=== PATIENT | male | born 1975 | race Hispanic/Latino ===

== ENCOUNTER 2019-10-10 21:27 | Inpatient (IN) | payer OTHER, SELFPAY ==
[~2019-10-10] VITALS: Ht 165.1 cm; Wt 102.1 kg
[2019-10-10] MEDS ORDERED: TETANUS/DIPHTHERIA TOXOID [ADULT] 0.5 ML VIAL IM ONE (22:03)
[2019-10-10] MEDS ORDERED: CEFAZOLIN SODIUM 1 GM VIAL ONE (22:03)
[2019-10-10] MEDS ORDERED: SODIUM CHLORIDE 0.9% 50 ML IV ONE (22:04)
[2019-10-10] MEDS: LACTATED RINGERS 1000ML 1,000 ML IV SCH (23:13)
[2019-10-10] MEDS ORDERED: ONDANSETRON HCL 4 MG/2 ML VIAL IV PRN (23:15)
[2019-10-10] MEDS ORDERED: DiphenhydrAMINE HCL 50 MG/ML VIAL IV PRN (23:15)
[2019-10-10] MEDS ORDERED: MORPHINE SULFATE 4 MG/1ML SYG IV PRN (23:15)
[2019-10-10] MEDS ORDERED: ACETAMINOPHEN 325 MG TAB PO PRN ×2 (23:15)
[2019-10-10] MEDS ORDERED: MAG HYDROX/AL HYDROX/SIMETH ES 30 ML SUSP UDCUP PO PRN (23:15)
[2019-10-10] MEDS ORDERED: ZOLPIDEM TARTRATE 5 MG TAB PO PRN (23:15)
[2019-10-10] MEDS ORDERED: MORPHINE SULFATE 2 MG/ML 1ML SYG IV PRN (23:15)
[2019-10-11] VITALS (22 sets, daily range): BP systolic 111–141; BP diastolic 58–90
[2019-10-11] MEDS ORDERED: LACTATED RINGERS 1000ML 1,000 ML IV ONE (00:14)
[2019-10-11 00:47] LABS: INR 0.93 (0.85-1.15); PARTIAL THROMBOPLASTIN TIME 24.7 SEC (26.3-35.5); PROTHROMBIN TIME 10.1 SEC (9.6-11.6)
[2019-10-11 00:50] LABS: ALBUMIN 3.4 g/dL (3.5-5.0); BILIRUBIN,TOTAL 0.3 mg/dL (0.2-1.0); CREATININE 0.8 mg/dL (0.5-1.5); POTASSIUM 3.8 mmol/L (3.5-5.1); TOTAL PROTEIN, SERUM 6.4 g/dL (6.0-8.3)
[2019-10-11 00:52] LABS: BASOPHILS % (AUTO) 0.7 % (0.0-5.0); EOSINOPHILS % (AUTO) 3.5 % (0.0-8.0); HEMATOCRIT 40.1 % (42-54); LYMPHOCYTES % (AUTO) 26.9 % (21.0-51.0); MEAN CORPUSCULAR HEMOGLOBIN 30.2 pg (27.0-33.0); MEAN CORPUSCULAR HGB CONC 35.4 g/dL (32.0-36.0); MEAN CORPUSCULAR VOLUME 85.3 fL (79-99); MONOCYTES % (AUTO) 7.6 % (3.0-13.0); NEUTROPHILS % (AUTO) 60.5 % (40.0-77.0); PLATELET COUNT (AUTO) 164 K/uL (130-400); RED CELL DISTRIBUTION WIDTH 12.3 % (11.0-15.5); WHITE BLOOD COUNT (AUTO) 7.6 K/uL (4.8-10.8)
[2019-10-11] MEDS ORDERED: HYDROCODONE/ACETAMINOPHEN 10/325 MG TAB ONE (02:35)
[2019-10-11] MEDS ORDERED: LIDOCAINE PF 2% 5ML ABBOJECT ONE ×2 (12:28→13:36)
[2019-10-11] MEDS ORDERED: PROPOFOL 10 MG/ML 20ML VIAL IV ONE (12:28)
[2019-10-11] MEDS ORDERED: SUCCINYLCHOLINE CHLORIDE 20 MG/ML 10 ML VIAL ONE (12:28)
[2019-10-11] MEDS ORDERED: FENTANYL CITRATE PF 50 MCG/1 ML 2ML VIAL ONE (12:29)
[2019-10-11] MEDS ORDERED: ROCURONIUM 10MG/1ML SYR 10 MG/ML ML ONE (12:29)
[2019-10-11] MEDS ORDERED: ROPIVACAINE 0.5% 5MG/ML 30ML IJ ONE (12:32)
[2019-10-11] MEDS ORDERED: CEFAZOLIN SODIUM 1 GM VIAL ONE ×2 (12:43→12:47)
[2019-10-11] MEDS ORDERED: NEOSTIGMINE 5MG/5ML SYR IV ONE (13:36)
[2019-10-11] MEDS ORDERED: SODIUM CHLORIDE 0.9% 10 ML VIAL ONE (13:36)
[2019-10-11] MEDS ORDERED: GLYCOPYRROLATE 1 MG/5 ML SYRINGE ONE (13:36)
[2019-10-11] MEDS ORDERED: KETOROLAC TROMETHAMINE 30MG/ML ONE (13:38)
--- NOTE | 2019-10-11 15:15 | NUR ---
PROCEDURE REPORT RECEIVED FROM BENITO FRANKEL RN (PACU). PATIENT S/P LEFT ACHILLES TENDON OPEN REPAIR LACERATION. DRESSING WITH SPLINT DRY AND INTACT. PATIENT STATES HAS NUMBNESS FROM MID THIGH TO TOES, UNABLE TO WIGGLE TOES AT THIS TIME. PATIENT DENIES ANY PAIN AT THIS TIME.
--- NOTE | 2019-10-11 17:32 | NUR ---
INITIAL SW spoke to patient's sister, Mendy Melara, . Patient lives with a sister in [place]. He is here visiting mother in [place]. Patient has no home services or DME. He is presently unemployed due to COVID 19. Patient is able to complete ADL's independently and drives. He has no local PCP. Pharmacy that patient will use will be [facility] located in [place]. DCP is home. Addendum: 10/11/19 at 1735 by BENITO BEASLEY Amended: Links added. Addendum: 10/11/19 at 1820 by BENITO DIAZ Patient has no insurance or benefits. He is a [place] citizen and has worked in the [place]. Patient's sister educated on [employer] $4 medication program and [facility] $5 medication program. Patient is being assisted by [employer] for financial matters.
[2019-10-11] MEDS: LACTATED RINGERS 1000ML 1,000 ML IV SCH (19:13)
--- NOTE | 2019-10-11 21:05 | NUR ---
spoke with patient and he claims he doesn't know how to use crutches and that he will like to learn with physical therapy.
[2019-10-12 00:17] VITALS: BP 106/69
[2019-10-12] MEDS ORDERED: SULF1TAB42 PO (01:07)
[2019-10-12] MEDS ORDERED: ACET1TAB25 PO (01:08)
--- NOTE | 2019-10-12 03:10 | NUR ---
patient is beginning to feel sensation to his left toes and has mild pain of a 3. acetaminophen given for the pain.
[2019-10-12 04:00] VITALS: BP 121/71
--- NOTE | 2019-10-12 04:00 | NUR ---
PLACED COLD PACKS UNDER PATIENT'S ARMPITS AND ON HIS ABDOMEN WELL ICE PACKS ON HIS HEAD TO LOWER HIS FEVER OF 99.7. WILL CONTINUE TO MONITOR HIS TEMPERATURE
[2019-10-12] MEDS: LACTATED RINGERS 1000ML 1,000 ML IV SCH ×4 (04:02→20:07)
--- NOTE | 2019-10-12 05:04 | NUR ---
PAGED DOCTOR PARKS FOR PATIENT'S FEVER OF 101.2. THE UTILIZATION MANAGER PAGED HIM. PENDING CALL BACK
--- NOTE | 2019-10-12 05:11 | NUR ---
DR. PARKS ASKED ME TO CONSULT HOSPITALIST FOR PATIENT'S FEVER OF 101.2 PAGED JESSIE CLARKE NP AND SHE SAID TO COLLECT BLOOD CULTURES X 2 STAT.
[2019-10-12] MEDS ORDERED: CEFAZOLIN SODIUM 1 GM VIAL ONE (06:45)
[2019-10-12] MEDS ORDERED: ENOXAPARIN SODIUM 40 MG/0.4 ML SYRINGE SQ ONE (06:45)
[2019-10-12] MEDS: ENOXAPARIN SODIUM 40 MG/0.4 ML SYRINGE SQ SCH ×2 (07:15→20:09)
[2019-10-12] MEDS: CEFAZOLIN SODIUM 1 GM VIAL IVP SCH ×3 (07:16→20:08)
[2019-10-12 07:58] LABS: BASOPHILS % (AUTO) 0.4 % (0.0-5.0); EOSINOPHILS % (AUTO) 1.9 % (0.0-8.0); LYMPHOCYTES % (AUTO) 25.1 % (21.0-51.0); MEAN CORPUSCULAR HEMOGLOBIN 30.2 pg (27.0-33.0); MEAN CORPUSCULAR HGB CONC 34.5 g/dL (32.0-36.0); MEAN CORPUSCULAR VOLUME 87.5 fL (79-99); MONOCYTES % (AUTO) 9.3 % (3.0-13.0); NEUTROPHILS % (AUTO) 62.8 % (40.0-77.0); PLATELET COUNT (AUTO) 154 K/uL (130-400); RED BLOOD CELL COUNT(AUTO) 4.57 MIL/uL (4.50-6.20); RED CELL DISTRIBUTION WIDTH 12.5 % (11.0-15.5)
[2019-10-12 08:00] VITALS: BP_SYST 112; BP_SYST 123; BP_DIAS 78; BP_DIAS 80
[2019-10-12 08:27] LABS: CREATININE 0.7 mg/dL (0.5-1.5); POTASSIUM 3.5 mmol/L (3.5-5.1)
[2019-10-12 08:31] LABS: ALBUMIN 3.3 g/dL (3.5-5.0); BILIRUBIN,TOTAL 0.9 mg/dL (0.2-1.0); TOTAL PROTEIN, SERUM 6.3 g/dL (6.0-8.3)
[2019-10-12 12:00] VITALS: BP 124/73
[2019-10-12 12:59] LABS: APPEARANCE,URINE Clear (CLEAR); BILIRUBIN,URINE Negative (NEGATIVE); COLOR,URINE Yellow (YELLOW); GLUCOSE, URINE (UA) >=1000 mg/dL (NEGATIVE); KETONES,URINE Trace mg/dL (NEGATIVE); LEUKOCYTE ESTERASE ,URINE Negative (NEGATIVE); NITRATE,URINE Negative (NEGATIVE); OCCULT BLOOD,URINE Negative (NEGATIVE); PH,URINE 6.5 (5.0-8.0); PROTEIN,URINE Negative (NEGATIVE)
[2019-10-12 13:11] LABS: BACTERIA,URINE Rare /HPF (None Seen); RBC,URINE 0-1 /HPF (0-1); SQUAMOUS EPITHELIAL CELL,UR Rare /HPF (0-2); WBC,URINE 0-1 /HPF (0-1)
--- NOTE | 2019-10-12 15:30 | NUR ---
PATIENT TRANSFERRED TO ROOM 414, REPORT GIVEN TO TOMAS STEARNS. PATIENT S/P COVID19 TEST, PENDING RESULTS. PATIENT STABLE AT THIS TIME.
[2019-10-12 16:00] VITALS: BP 123/78
[2019-10-12] MEDS: ACETAMINOPHEN-CODEINE 300/30MG TAB PO PRN ×2 (16:25→22:09)
--- NOTE | 2019-10-12 16:30 | NUR ---
Pt transferred from 3rd floor to evaluate for COVID-19, patient swabbed this am by staff. VSS and pain adequately managed.Will monitor for any changes.
[2019-10-12 19:00] VITALS: BP 116/73
[2019-10-13] VITALS: BP 131/84
[2019-10-13 04:00] VITALS: BP 135/89
[2019-10-13] MEDS: ACETAMINOPHEN-CODEINE 300/30MG TAB PO PRN ×2 (04:09→13:49)
[2019-10-13] MEDS: CEFAZOLIN SODIUM 1 GM VIAL IVP SCH ×3 (05:29→21:42)
[2019-10-13] MEDS: LACTATED RINGERS 1000ML 1,000 ML IV SCH ×2 (05:58→18:06)
[2019-10-13 06:15] LABS: BASOPHILS % (AUTO) 0.6 % (0.0-5.0); HEMATOCRIT 39.3 % (42-54); LYMPHOCYTES % (AUTO) 22.9 % (21.0-51.0); MEAN CORPUSCULAR HEMOGLOBIN 30.2 pg (27.0-33.0); MEAN CORPUSCULAR HGB CONC 34.9 g/dL (32.0-36.0); MEAN CORPUSCULAR VOLUME 86.6 fL (79-99); MONOCYTES % (AUTO) 11.3 % (3.0-13.0); NEUTROPHILS % (AUTO) 61.8 % (40.0-77.0); PLATELET COUNT (AUTO) 144 K/uL (130-400); RED BLOOD CELL COUNT(AUTO) 4.54 MIL/uL (4.50-6.20); RED CELL DISTRIBUTION WIDTH 12.3 % (11.0-15.5); WHITE BLOOD COUNT (AUTO) 7.1 K/uL (4.8-10.8)
[2019-10-13 06:42] LABS: ALANINE AMINOTRANSFERASE 34 U/L (12-78); ALBUMIN 3.2 g/dL (3.5-5.0); ASPARTATE AMINOTRANSFERASE 19 U/L (10-37); BILIRUBIN,TOTAL 0.7 mg/dL (0.2-1.0); CARBON DIOXIDE 26 mmol/L (21-32); CHLORIDE 104 mmol/L (101-111); CREATININE 0.7 mg/dL (0.5-1.5); GLOMERULAR FILTR. RATE CALC 131 mL/min (>60); GLUCOSE,RANDOM 127 mg/dL (70-105); LACTATE DEHYDROGENASE 165 U/L (81-234); POTASSIUM 3.7 mmol/L (3.5-5.1); SODIUM SERUM 140 mmol/L (136-145); TOTAL PROTEIN, SERUM 6.6 g/dL (6.0-8.3); UREA NITROGEN, BLOOD 10 mg/dL (7-18)
[2019-10-13] MEDS ORDERED: CEFTRIAXONE SODIUM 1 GM IVP SCH ×3 (07:09→08:45)
[2019-10-13 08:00] VITALS: BP 131/87
[2019-10-13] MEDS: ENOXAPARIN SODIUM 40 MG/0.4 ML SYRINGE SQ SCH ×2 (09:43→21:42)
[2019-10-13 11:00] VITALS: BP 127/73
[2019-10-13] MEDS: PHARMACY COMMUNICATION MISC SCH ×3 (15:15→21:21)
[2019-10-13 16:15] VITALS: BP 129/85
--- NOTE | 2019-10-13 16:22 | NUR ---
Case reviewed with Dr. Soriano and Dr. Hernandez. Pending blood cultures for 48 hours before any discharge recommendation. If blood cultures negative, may discharge per Dr. Soriano to home, Lt foot non-weight bearing with crutches, leave dressing in place until follows up in 2 weeks and take medications Bactrim until completed.
[2019-10-13] MEDS ORDERED: CEFTRIAXONE SODIUM 2 GM VIAL ONE (20:54)
[2019-10-13 21:16] VITALS: BP 129/84
[2019-10-14 00:13] VITALS: BP 142/93
[2019-10-14] MEDS: PHARMACY COMMUNICATION MISC SCH ×6 (03:15→21:36)
[2019-10-14 03:50] VITALS: BP 137/83
[2019-10-14] MEDS: CEFAZOLIN SODIUM 1 GM VIAL IVP SCH ×3 (06:07→21:36)
[2019-10-14] MEDS: LACTATED RINGERS 1000ML 1,000 ML IV SCH (06:07)
[2019-10-14 06:13] LABS: BASOPHILS % (AUTO) 0.2 % (0.0-5.0); EOSINOPHILS % (AUTO) 4.9 % (0.0-8.0); HEMATOCRIT 41.2 % (42-54); LYMPHOCYTES % (AUTO) 28.2 % (21.0-51.0); MEAN CORPUSCULAR HEMOGLOBIN 30.8 pg (27.0-33.0); MEAN CORPUSCULAR HGB CONC 35.7 g/dL (32.0-36.0); MEAN CORPUSCULAR VOLUME 86.2 fL (79-99); MONOCYTES % (AUTO) 9.3 % (3.0-13.0); NEUTROPHILS % (AUTO) 56.9 % (40.0-77.0); PLATELET COUNT (AUTO) 157 K/uL (130-400); RED BLOOD CELL COUNT(AUTO) 4.78 MIL/uL (4.50-6.20); RED CELL DISTRIBUTION WIDTH 12.1 % (11.0-15.5); WHITE BLOOD COUNT (AUTO) 6.6 K/uL (4.8-10.8)
[2019-10-14 06:32] LABS: CREATININE 0.7 mg/dL (0.5-1.5)
[2019-10-14 08:00] VITALS: BP 131/80
[2019-10-14] MEDS ORDERED: CEFTRIAXONE SODIUM 1 GM IVP SCH (08:00)
[2019-10-14] MEDS: ENOXAPARIN SODIUM 40 MG/0.4 ML SYRINGE SQ SCH ×2 (09:19→21:00)
[2019-10-14] MEDS: ACETAMINOPHEN-CODEINE 300/30MG TAB PO PRN (09:20)
[2019-10-14 11:00] VITALS: BP 141/88
[2019-10-14 16:00] VITALS: BP 115/80
[2019-10-14 20:00] VITALS: BP 120/81
[2019-10-15] VITALS: BP 124/79
--- NOTE | 2019-10-15 02:07 | NUR ---
Patient D/C @19:48 Dr. Soriano called the 4th floor giving discharge orders for the patient. When the patient was informed of the D/C orders he was hesitant to go home without his covid results because he stated that the only person that would be able to pick him up at this time was his m,o
--- NOTE | 2019-10-15 02:11 | NUR ---
Possible D/C Patient D/C @19:48 Dr. Soriano called the 4th floor giving discharge orders for the patient. When the patient was informed of the D/C orders he was hesitant to go home without his covid results because he stated that the only person that would be able to pick him up at this time was his mom & he did not want to put her in harms way. Considering that, the lab was called with inquiries about his test results and the tech informed the nurse that they will not probably be in until later shift or the next day. Dr. Soriano was informed of the situation & he said that it was ok for him to stay the night until his results are in. However, the patient has to be D/C regardless tomorrow, so he needs to be working on someone else to pick him up from the hospital.
[2019-10-15] MEDS: PHARMACY COMMUNICATION MISC SCH ×5 (02:48→17:42)
[2019-10-15 04:00] VITALS: BP 122/73
[2019-10-15] MEDS: CEFAZOLIN SODIUM 1 GM VIAL IVP SCH ×2 (05:55→08:01)
[2019-10-15 08:00] VITALS: BP 123/76
[2019-10-15] MEDS: ENOXAPARIN SODIUM 40 MG/0.4 ML SYRINGE SQ SCH (08:00)
[2019-10-15 11:00] VITALS: BP 119/74
--- NOTE | 2019-10-15 12:59 | NUR ---
CM NOTE/DCP HOME CALLED PATIENT TO CELLPHONE. PER MR BUZZ, WILL BE STAYING WITH BROTHER AND QUARANTINE/ISOLATE UNTIL COVID RESULTS ARE IN. DR JAIVER AND PRIMARY NURSE, JINNY MARIN, MADE AWARE. LAB CALLED, RESULTS NOT IN AND PENDING. DCP HOME TO WAIT FOR RESULTS.
[2019-10-15 16:00] VITALS: BP 147/74
--- NOTE | 2019-10-15 16:46 | NUR ---
Patient cleared by all services to be discharged. DC instructions reviewed and patient verbalized understanding.
[2019-10-15] MEDS: ACETAMINOPHEN-CODEINE 300/30MG TAB PO PRN (17:43)
== END 2019-10-15 17:58 | disposition home or self-care (01) | DRG 502 ==
LOC: EDH 21:27 → EDHIP 21:28 → OBSVTOIN 21:28 → 3DH 10-11 15:32 → 4CH 10-12 15:49
PROVIDERS: ADMIT Orthopaedic Surgery Sports Medicine; ATTEND Orthopaedic Surgery Sports Medicine
PROC: 0LQP0ZZ Repair Left Lower Leg Tendon, Open Approach (ICD-10-PCS; principal; 2019-10-11 12:47)
DX: S86.022A Laceration of left Achilles tendon, initial encounter (principal); E66.9 Obesity, unspecified; Z68.37 Body mass index [BMI] 37.0-37.9, adult; Z20.828 Contact with and (suspected) exposure to other viral communicable diseases; W31.89XA Contact with other specified machinery, initial encounter; Y93.89 Activity, other specified; Y92.89 Other specified places as the place of occurrence of the external cause; Y99.8 Other external cause status
CPT/HCPCS: 36415; 71045; 80048; 80053; 81001; 82728; 83615; 84145; 85025; 85610; 85730; 86140; 87040; 90714; 93005; 97039; A4606; G0378; J0330; J0690; J0696; J1650; J1885; J2001; J2270; J2405; J2704; J2710; J2795; J3010; J3490; J7120; U0003